=== PATIENT | female | born 1990 | race African-American/Black ===

== ENCOUNTER 2017-06-18 19:26 | Emergency (ER) | payer BC, MEDICAID ==
[~2017-06-18] VITALS: Ht 157.5 cm; Wt 62.5 kg
[~2017-06-18 19:26] MED LIST: ATA25 PO; PREN1TAB49 PO
[2017-06-18 19:58] VITALS: Ht 157.5 cm; Wt 62.5 kg
[2017-06-18] MEDS ORDERED: ACETAMINOPHEN 500 MG TAB PO STA (20:57)
[2017-06-18] MEDS ORDERED: SOD CHLORIDE 0.9% 1,000 ML IV ONE (21:00)
[2017-06-18] MEDS ORDERED: METOCLOPRAMIDE 10 MG INJ IV ONE (21:00)
[2017-06-18] MEDS ORDERED: FAMOTIDINE 20 MG INJ IV ONE (21:30)
[2017-06-18 21:37] LABS: ABNORMAL IP MESSAGE 1; BASOPHILS % 0.1 % (0.0-2.0); EOSINOPHILS % 0.1 % (0.0-7.0); HEMATOCRIT 39.6 % (37.0-47.0); HEMOGLOBIN 12.9 g/dl (12.0-16.0); LYMPHOCYTES # 0.5 10^3/ul (0.8-2.9); LYMPHOCYTES % 3.3 % (15.0-51.0); MEAN CORPUSCULAR HEMOGLOBIN 28.7 pg (29.0-33.0); MEAN CORPUSCULAR HGB CONC 32.6 g/dl (32.0-37.0); MEAN CORPUSCULAR VOLUME 88.2 fl (82.0-101.0); MEAN PLATELET VOLUME 12.1 fl (7.4-10.4); MONOCYTE # 0.8 10^3/ul (0.3-0.9); MONOCYTES % 5.5 % (0.0-11.0); NEUTROPHILS % 90.5 % (39.0-77.0); PLATELET COUNT 159 10^3/UL (140-415); RED BLOOD COUNT 4.49 10^6/ul (4.20-5.40); RED CELL DISTRIBUTION WIDTH 13.8 % (11.5-14.5); WHITE BLOOD COUNT 14.3 10^3/ul (4.8-10.8)
[2017-06-18 21:41] LABS: POSITIVE DIFF @See below
[2017-06-18 21:50] LABS: ADD UMIC YES; UR ASCORBIC ACID NEGATIVE (NEGATIVE); UR BACTERIA FEW /HPF (NONE SEEN); UR BILIRUBIN (Dip) NEGATIVE (NEGATIVE); UR BLOOD (Dip) NEGATIVE (NEGATIVE); UR CLARITY SLIGHTLY CLOUDY (CLEAR); UR COLOR AMBER (YELLOW); UR GLUCOSE (Dip) NEGATIVE (NEGATIVE); UR KETONES (Dip) 1+ mg/dL (NEGATIVE); UR LEUKOCYTE ESTERASE (Dip) TRACE Leu/ul (NEGATIVE); UR MUCUS FEW /HPF (NONE SEEN); UR NITRITE (Dip) NEGATIVE (NEGATIVE); UR RBC 1 /HPF (0-5); UR SPECIFIC GRAVITY (Dip) 1.024 (1.003-1.030); UR SQUAMOUS EPITHELIAL CELL FEW /HPF (FEW); UR TOTAL PROTEIN (Dip) NEGATIVE (NEGATIVE); UR UROBILINOGEN (Dip) 2+ mg/dL (NEGATIVE)
[2017-06-18 21:59] LABS: ALBUMIN/GLOBULIN RATIO 1.02; BILIRUBIN,INDIRECT 0.5 mg/dl (0-1.1); BILIRUBIN,TOTAL 0.5 mg/dl (0.2-1.3); CALCIUM 9.4 mg/dl (8.4-10.2); CREATININE 0.5 mg/dl (0.44-1.00); POTASSIUM 3.5 mmol/L (3.5-5.1); TOTAL PROTEIN 7.9 g/dl (6.1-8.1)
--- NOTE | 2017-06-18 22:30 | RADRPT ---
PROCEDURE: US OB. CLINICAL INDICATION: Vaginal bleeding. Positive TECHNIQUE: Transabdominal and transvaginal views of the pelvis are available for review. COMPARISON: No prior studies are available for comparison. FINDINGS: Uterus: No evidence of masses and normal in contour Endometrial cavity: Intrauterine gestational sac, yolk sac and pole are present with the foll owing information: [place]-rump length:3.36 cm heart rate:154 bpm Gestational sac:3.84 cm Ultrasound estimated gestational age:9 weeks 5 days No evidence of subchorionic hemorrhage Right ovary/adnexa: Ovarian size is enlarged estimated at 6.7 x 6.5 x 5.1 cm. A simple right ovaria n cyst is present measuring 5.7 x 5.5 x 3.8 cm. Normal blood flow seen within the ovarian tissue. Left ovary/adnexa: The ovary is not visualized. There is no evidence of adnexal mass or free fluid . Cul-de-sac: There is no free fluid. RPTAT:HJJR IMPRESSION: 1. Single viable intrauterine with an estimated gestational age of 9 weeks 5 days. No e vidence of subchorionic hemorrhage. 2. Simple right ovarian cyst estimated at 5.7 cm. Consider follow-up evaluation. Physician Wendi Date Time Electronically viewed and signed by Physician Wendi on 06/18/2017 22:30 /
[2017-06-18] MEDS ORDERED: ACET500C5 PO (23:54)
[2017-06-19] MEDS ORDERED: METO10TA92 PO (00:02)
--- NOTE | 2017-06-19 00:02 | ERD ---
ER Documentation Chief Complaint Date/Time DATE: 06/18/17 TIME: 23:56 Chief Complaint 8 WKS PRG, C/O RT ABD CRAMPING/PAIN X1 WK +N/V NO BLEEDING. HPI 27-year-old female with a past medical history of status post cholecystectomy is a A2 presents to the ED complaining of right lower quadrant pelvic pain , nausea, few episodes of nonbilious nonbloody vomiting that started intermittently for 1 week. Reports that her last menstruation was April 01, 2017. States that she does not have an [facility]. Reports that she sees a GI specialist to monitor her liver enzymes. States that when she was 2 months old , she had a gallbladder cyst. States that she had a cholecystectomy 5 years ago when she was to remove gallstones in her bile duct. Reports that she has not had any issues since then. States that her liver enzymes fluctuate. Denies any fever, chills, diarrhea, constipation, vaginal discharge , dysuria, urgency, frequency chest pain, shortness of breath. ROS All systems reviewed and are negative except as per history of present illness. Medications Home Meds Active Scripts Metoclopramide* (Reglan*) 10 Mg Tablet, 10 MG PO Q6 Y for NAUSEA AND/OR VOMITING , #10 TAB Prov:ELENA RAO PA-C 06/19/17 Acetaminophen* (Tylophen*) 500 Mg Capsule, 1 CAP PO Q6H Y for PAIN AND OR ELEVATED TEMP, #20 CAP Prov:ELENA RAO PA-C 06/18/17 Reported Medications Vits W-Ca,Fe,Fa(<1MG) () 1 Tab Tablet, 1 TAB PO DAILY 11/13/11 Hydroxyzine Hcl* (Atarax*) 25 Mg Tab, 75 MG PO Q6 Y 11/13/11 Allergies Allergies: Coded Allergies: No Known Allergies (Verified Allergy, Mild, 06/18/17) PMhx/Soc History of Surgery: Yes (open cholecystectory 1991) Anesthesia Reaction: No Hx Neurological Disorder: No Hx Respiratory Disorders: No Hx Cardiac Disorders: No Hx Psychiatric Problems: No Hx Alcohol Use: Yes (4 mos ago - ) Hx Substance Use: No Hx Tobacco Use: Yes (2 sticks a day) Smoking Status: Never smoker Physical Exam Vitals Vital Signs Date Time Temp Pulse Resp B/P Pulse Ox O2 Delivery O2 Flow Rate FiO2 06/18/17 19:58 99.2 102 18 114/70 99 Physical Exam Const: [id number], well-nourished. In no acute distress. Head: Atraumatic, normocephalic Eyes: Normal Conjunctiva without injection. No purulent discharge. ENT: Normal external ear, nose. Moist oropharynx without tonsillar exudates. Non -erythematous pharynx. Uvula midline. No drooling. No trismus. Neck: No cervical midline tenderness. Full range of motion. No meningismus. No cervical lymphadenopathy. No JVD. Resp: Clear to auscultation bilaterally. No wheezing, rhonchi, rales, or crackles. No accessory muscle use. No retractions. Cardio: Regular rate and rhythm. No murmurs, rubs or gallops. Abd: Soft, right lower quadrant pelvic tenderness, non distended. Normal bowel sounds. No palpable masses. No rebound tenderness. No guarding. Negative McBurney's point. Negative psoas sign. Negative obturator sign. Skin: No petechiae or rashes Back: No midline tenderness. No CVA tenderness. Ext: No cyanosis, or edema. Neur: Awake and alert. Normal gait. Normal coordination. Psych: Normal Mood and Affect Results 24 hrs Laboratory Tests Test 06/18/17 21:05 06/18/17 21:10 White Blood Count 14.310^3/ul Red Blood Count 4.4910^6/ul Hemoglobin 12.9g/dl Hematocrit 39.6% Mean Corpuscular Volume 88.2fl Mean Corpuscular Hemoglobin 28.7pg Mean Corpuscular Hemoglobin Concent 32.6g/dl Red Cell Distribution Width 13.8% Platelet Count 76453^3/UL Mean Platelet Volume 12.1fl Neutrophils % 90.5% Lymphocytes % 3.3% Monocytes % 5.5% Eosinophils % 0.1% Basophils % 0.1% Nucleated Red Blood Cells % 0.0/100WBC Neutrophils # (Manual) 12.910^3/ul Lymphocytes # 0.510^3/ul Monocytes # 0.810^3/ul Eosinophils # 0.010^3/ul Basophils # 0.010^3/ul Nucleated Red Blood Cells # 0.010^3/ul Sodium Level 135mmol/L Potassium Level 3.5mmol/L Chloride Level 104mmol/L Carbon Dioxide Level 23mmol/L Anion Gap 12 Blood Urea Nitrogen 5mg/dl Creatinine 0.50mg/dl Glucose Level 91mg/dl Calcium Level 9.4mg/dl Total Bilirubin 0.5mg/dl Direct Bilirubin 0.00mg/dl Indirect Bilirubin 0.5mg/dl Aspartate Amino Transf (AST/SGOT) 102IU/L Alanine Aminotransferase (ALT/SGPT) 83IU/L Alkaline Phosphatase 544IU/L Total Protein 7.9g/dl Albumin 4.0g/dl Globulin 3.90g/dl Albumin/Globulin Ratio 1.02 Lipase 42U/L Beta HCG, Quantitative 96895.0mIU/ml Urine Color MAURISIO Urine Clarity SLIGHTLY CLOUDY Urine pH 6.0 Urine Specific [place] 1.024 Urine Ketones 1+mg/dL Urine Nitrite NEGATIVEmg/dL Urine Bilirubin NEGATIVEmg/dL Urine Urobilinogen 2+mg/dL Urine Leukocyte Esterase TRACELeu/ul Urine Microscopic RBC 1/HPF Urine Microscopic WBC 2/HPF Urine Squamous Epithelial Cells FEW/HPF Urine Bacteria FEW/HPF Urine Mucus FEW/HPF Urine Hemoglobin NEGATIVEmg/dL Urine Glucose NEGATIVEmg/dL Urine Total Protein NEGATIVEmg/dl Current Medications Medications (Trade) Dose Ordered Sig/Suzette Route PRN Reason Start Time Stop Time Status Last Admin Dose Admin Acetaminophen (Tylenol Tab) 500 mg ONCE STAT PO 06/18/17 20:57 06/18/17 20:59 DC 06/18/17 20:57 Metoclopramide HCl 10 mg 10 mg ONCE ONCE IV 06/18/17 21:00 06/18/17 21:01 DC 06/18/17 21:00 Sodium Chloride (NS) 1,000 ml @ 1,000 mls/hr Q1H ONCE IV 06/18/17 21:00 06/18/17 21:59 DC 06/18/17 21:00 Famotidine (Pepcid Iv) 20 mg ONCE ONCE IV 06/18/17 21:30 06/18/17 21:31 DC 06/18/17 22:10 Procedures/MDM 27-year-old female patient with a status post cholecystectomy presents to the ED complaining of right lower quadrant pelvic tenderness and vomiting. Patient is afebrile and nontoxic-appearing. Patient has normal vital signs. An ultrasound, beta-hCG, CBC, type and RH, UA was ordered to evaluate patient. Patient given Famotidine, 1 L normal saline, Reglan with improvement of her symptoms. CBC: No evidence of severe infection or anemia CMP: Mildly elevated liver enzymes.. No evidence of renal injury, alkalosis, acidosis. Urine: No elevation in nitrites, leukocyte esterase, hematuria. No evidence of UTI Rh: O positive No indication for Rhogam at this time. beta Hc.0 PROCEDURE: US OB. CLINICAL INDICATION: Vaginal bleeding. Positive TECHNIQUE: Transabdominal and transvaginal views of the pelvis are available for review. COMPARISON: No prior studies are available for comparison. FINDINGS: Uterus: No evidence of masses and normal in contour Endometrial cavity: Intrauterine gestational sac, yolk sac and pole are present with the following information: [place]-rump length: 3.36 cm heart rate: 154 bpm Gestational sac: 3.84 cm Ultrasound estimated gestational age: 9 weeks 5 days No evidence of subchorionic hemorrhage Right ovary/adnexa: Ovarian size is enlarged estimated at 6.7 x 6.5 x 5.1 cm. A simple right ovarian cyst is present measuring 5.7 x 5.5 x 3.8 cm. Normal blood flow seen within the ovarian tissue. Left ovary/adnexa: The ovary is not visualized. There is no evidence of adnexal mass or free fluid. Cul-de-sac: There is no free fluid. RPTAT:HJJR IMPRESSION: 1. Single viable intrauterine with an estimated gestational age of 9 weeks 5 days. No evidence of subchorionic hemorrhage. 2. Simple right ovarian cyst estimated at 5.7 cm. Consider follow-up evaluation. Low suspicion for symptomatic anemia, ectopic , sepsis, PID, appendicitis, ovarian torsion, tubo-ovarian abscess, choledocholithiasis, cholangitis, surgical abdomen, or other emergent conditions. Patient also has a right ovarian cyst, 5.7 cm in size likely being patient's reason for her right lower quadrant pain. Mildly elevated liver enzymes noted here in the ED was discussed with my supervising physician, Dr. Yusuf. Patient stated that she would like to go home and denied wanting a gallbladder ultrasound at this time. States that she wants to follow-up with her GI specialist. Dr. Yusuf stated that patient can be managed on outpatient basis. Patient to follow up with [facility] in 2 days for further evaluation and treatment. Patient is to return sooner to the ED for any worsening symptoms. Patient's questions were answered. Patient understood and agreed with discharge plan. Departure Diagnosis: Primary Impression: Pelvic pain during Condition: Stable Patient Instructions: How the Liver Works, Adapting to : First Trimester, Ovarian Cyst, Liver Panel Referrals: [facility] YOU HAVE RECEIVED A MEDICAL SCREENING EXAM AND THE RESULTS INDICATE THAT YOU DO NOT HAVE A CONDITION THAT REQUIRES URGENT TREATMENT IN THE EMERGENCY DEPARTMENT. FURTHER EVALUATION AND TREATMENT OF YOUR CONDITION CAN WAIT UNTIL YOU ARE SEEN IN YOUR DOCTORS OFFICE WITHIN THE NEXT 1-2 DAYS. IT IS YOUR RESPONSIBILITY TO MAKE AN APPOINTMENT FOR FOLOW-UP CARE. IF YOU HAVE A PRIMARY DOCTOR --you should call your primary doctor and schedule an appointment IF YOU DO NOT HAVE A PRIMARY DOCTOR YOU CAN CALL OUR PHYSICIAN REFERRAL HOTLINE AT IF YOU CAN NOT AFFORD TO SEE A PHYSICIAN YOU CAN CHOSE FROM THE FOLLOWING [facility] [address] [employer] [address] [facility] [address] [employer] [facility]. [facility] [address] [facility] [address] [facility] [address] [facility]. [facility]. [address] [facility]. [facility] YOU HAVE RECEIVED A MEDICAL SCREENING EXAM AND THE RESULTS INDICATE THAT YOU DO NOT HAVE A CONDITION THAT REQUIRES URGENT TREATMENT IN THE EMERGENCY DEPARTMENT. FURTHER EVALUATION AND TREATMENT OF YOUR CONDITION CAN WAIT UNTIL YOU ARE SEEN IN YOUR DOCTORS OFFICE WITHIN THE NEXT 1-2 DAYS. IT IS YOUR RESPONSIBILITY TO MAKE AN APPOINTMENT FOR FOLOW-UP CARE. IF YOU HAVE A PRIMARY DOCTOR --you should call your primary doctor and schedule and appointment IF YOU DO NOT HAVE A PRIMARY DOCTOR YOU CAN CALL OUR PHYSICIAN REFERRAL HOTLINE AT . IF YOU CAN NOT AFFORD TO SEE A PHYSICIAN YOU CAN CHOSE FROM THE FOLLOWING [facility] INSTITUTIONS: [facility] [place] [address] [place] [address] [facility] [address] [place] [address] [facility] [address] [place] [address] [facility] Hours: 8:00 am - 5:00 pm Additional Instructions: FOLLOW UP WITH YOUR GI specialist and GENER[facility]ENT TOMORROW for further evaluation and treatment.Return to this facility if you are not improving as expected. ELENA RAO PA-C Jun 19, 2017 00:02 ELENA RAO PA-C Jun 19, 2017 00:02
[2017-06-19 00:28] VITALS: BP 109/65; PULSE 57; RESP 20; TEMP 98.2
== END 2017-06-19 00:18 | disposition home or self-care (01) ==
LOC: FTE 19:26
DX: O26.891 Other specified pregnancy related conditions, first trimester (principal); R10.2 Pelvic and perineal pain; Z3A.09 9 weeks gestation of pregnancy; Z87.891 Personal history of nicotine dependence
CPT/HCPCS: 36415; 76801; 80053; 81001; 83690; 84702; 85025; 86900; 86901; 87086; 96374; 96375; 99285; J2765; J7030